=== PATIENT | female | born 1995 | race African-American/Black ===

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

== ENCOUNTER 2017-01-25 10:24 | Emergency (ER) | payer OTHER ==
[~2017-01-25 10:24] MED LIST changes: +NITR100C62 PO; +POLY17PO29 PO; -POLY17PO5 PO
[2017-01-25 10:46] VITALS: BP 102/58
[2017-01-25] MEDS ORDERED: CYCL5TAB PO (11:20)
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
== END 2017-01-25 12:06 | disposition home or self-care (01) ==
LOC: ER 10:29
DX: S16.1XXA Strain of muscle, fascia and tendon at neck level, initial encounter (principal); M54.5 Low back pain; M54.6 Pain in thoracic spine; V49.88XA Car occupant (driver) (passenger) injured in other specified transport accidents, initial encounter; Y93.89 Activity, other specified; Y99.8 Other external cause status; Y92.488 Other paved roadways as the place of occurrence of the external cause
CPT/HCPCS: 70450; 99284-25

== ENCOUNTER 2017-08-03 18:38 | Emergency (ER) | payer SELFPAY, OTHER ==
[2017-08-03 19:28] LABS: URINE HCG POC HCG NEGATIVE (Negative)
[2017-08-03 19:46] LABS: BILIRUBIN,URINE NEGATIVE (NEG); CLARITY,URINE CLEAR; COLOR,URINE YELLOW; GLUCOSE,URINE NEGATIVE (NEG); NITRITE,URINE POSITIVE (NEG); PH,URINE 7.5; PROTEIN,URINE NEGATIVE (NEG-TRACE); UROBILINOGEN,URINE 0.2 mg/dL (0.2 mg/dL)
[2017-08-03] MEDS: IBUPROFEN 600 MG TABLET. PO (19:49)
[2017-08-03 19:52] LABS: BACTERIA,URINE MANY /HPF (0-FEW); RBC,URINE 0 /HPF (0-2); SQUAMOUS EPITHELIAL CELL,UR MOD /LPF
[2017-08-03] MEDS: AZITHROMYCIN 250 MG TABLET. PO (23:37)
[2017-08-03] MEDS: cefTRIAXone IM 250 MG VIAL IM (23:37)
[2017-08-06 20:10] LABS: CHLAMYDIA PROBE Negative (Negative); GC PROBE Positive (Negative)
== END 2017-08-03 23:44 | disposition home or self-care (01) ==
LOC: ER 18:38
DX: N39.0 Urinary tract infection, site not specified (principal); N76.0 Acute vaginitis; B96.89 Other specified bacterial agents as the cause of diseases classified elsewhere
CPT/HCPCS: 76856; 81001; 81025; 87086; 87491; 87591; 96372; 99285-25; J0696; Q0111; Q0144

== ENCOUNTER 2017-12-04 11:53 | Emergency (ER) | payer OTHER ==
[2017-12-04 12:57] LABS: NEGATIVE OBC STREP NEG; POSITIVE OBC STREP POS
[2017-12-04] MEDS: ACETAMINOPHEN/CODEINE 120/12MG 5 ML SOLUTION. PO (13:09)
== END 2017-12-04 13:15 | disposition home or self-care (01) ==
LOC: ER 11:53
DX: B34.9 Viral infection, unspecified (principal); J02.9 Acute pharyngitis, unspecified; F17.200 Nicotine dependence, unspecified, uncomplicated
CPT/HCPCS: 87070; 87880; 99283

== ENCOUNTER 2018-02-01 00:08 | Emergency (ER) | payer OTHER ==
[2018-02-01 00:29] LABS: URINE HCG POC HCG NEGATIVE (Negative)
[2018-02-01 00:33] LABS: BILIRUBIN,URINE NEGATIVE (NEG); CLARITY,URINE CLEAR; COLOR,URINE YELLOW; GLUCOSE,URINE NEGATIVE (NEG); NITRITE,URINE POSITIVE (NEG); PROTEIN,URINE NEGATIVE (NEG-TRACE); UROBILINOGEN,URINE 0.2 mg/dL (0.2 mg/dL)
[2018-02-01 00:49] LABS: BACTERIA,URINE MANY /HPF (0-FEW); SQUAMOUS EPITHELIAL CELL,UR MANY /LPF
[2018-02-01] MEDS: cefTRIAXone IM 250 MG VIAL IM (01:49)
[2018-02-01] MEDS: metroNIDAZOLE 500 MG TABLET PO (01:49)
[2018-02-01] MEDS: AZITHROMYCIN 250 MG TABLET. PO (01:50)
[2018-02-03 14:24] LABS: CHLAMYDIA PROBE Negative (Negative); GC PROBE Positive (Negative)
== END 2018-02-01 01:55 | disposition home or self-care (01) ==
LOC: ER 00:08
DX: N39.0 Urinary tract infection, site not specified (principal); N76.0 Acute vaginitis; B96.89 Other specified bacterial agents as the cause of diseases classified elsewhere; Z20.2 Contact with and (suspected) exposure to infections with a predominantly sexual mode of transmission
CPT/HCPCS: 81001; 81025; 87086; 87491; 87591; 96372; 99284; J0696; Q0111; Q0144

== ENCOUNTER 2018-02-11 23:06 | Emergency (ER) | payer OTHER ==
[2018-02-11 23:39] LABS: URINE HCG POC HCG NEGATIVE (Negative)
[2018-02-11 23:46] LABS: BILIRUBIN,URINE NEGATIVE (NEG); CLARITY,URINE CLEAR; COLOR,URINE YELLOW; GLUCOSE,URINE NEGATIVE (NEG); NITRITE,URINE NEGATIVE (NEG); PH,URINE 6.5; PROTEIN,URINE NEGATIVE (NEG-TRACE); UROBILINOGEN,URINE 0.2 mg/dL (0.2 mg/dL)
[2018-02-11 23:56] LABS: BACTERIA,URINE FEW /HPF (0-FEW); RBC,URINE 20-40 /HPF (0-2); SQUAMOUS EPITHELIAL CELL,UR MOD /LPF; WBC,URINE OCC /HPF (0-4)
== END 2018-02-12 00:42 | disposition home or self-care (01) ==
LOC: ER 23:06
DX: N89.8 Other specified noninflammatory disorders of vagina (principal); R10.2 Pelvic and perineal pain
CPT/HCPCS: 81001; 81025; 99284

== ENCOUNTER 2018-12-24 15:07 | Emergency (ER) | payer OTHER, SELFPAY ==
[~2018-12-24] VITALS: Ht 160 cm; Wt 47.6 kg
[~2018-12-24 15:07] MED LIST changes: +CEPH-264 PO; +CYCL5TAB PO; +HYDR28OI2 TP; +METR500T PO; +SULF1TAB24 PO
[2018-12-24 15:35] VITALS: BP 101/60
[2018-12-24 16:38] LABS: BILIRUBIN,URINE NEGATIVE (NEG); CLARITY,URINE CLEAR; COLOR,URINE YELLOW; NITRITE,URINE NEGATIVE (NEG); PROTEIN,URINE NEGATIVE (NEG-TRACE); UROBILINOGEN,URINE 0.2 mg/dL (0.2 mg/dL)
[2018-12-24 16:49] LABS: BACTERIA,URINE MODERATE /HPF (0-FEW); RBC,URINE 0 /HPF (0-2); SQUAMOUS EPITHELIAL CELL,UR FEW /LPF
--- NOTE | 2018-12-24 16:53 | PHYS DOC ---
Past Medical History Past Medical History: Other Additional Past Medical Histor: ECZEMA,SEASONAL ALLERGIES Past Surgical History: Tonsillectomy Additional Past Surgical Histo: CYST REMOVAL RIGHT WRIST,ADENOIDECTOMY Alcohol Use: None Drug Use: None Adult General Chief Complaint Chief Complaint: ABDOMINAL PAIN HPI HPI 23-year-old female presents to ER for complaints of intermittent nausea and 3 home positive test. Patient reports she's had some mild intermittent l ower abdominal discomfort however denies any pain today. She denies any abnormal vaginal bleeding. Review of Systems Review of Systems Constitutional: Denies fever or chills [] Eyes: Denies change in visual acuity, redness, or eye pain [] HENT: Denies nasal congestion or sore throat [] Respiratory: Denies cough or shortness of breath [] Cardiovascular: No additional information not addressed in HPI [] GI: Denies vomiting, bloody stools or diarrhea. Reports abd pain earlier in wk- denies any today. Reports intermittent nausea : Denies dysuria or hematuria [] Musculoskeletal: Denies back pain or joint pain [] Integument: Denies rash or skin lesions [] Neurologic: Denies headache, focal weakness or sensory changes. Denies dizziness All other systems were reviewed and found to be within normal limits, except as documented in this note. Allergies Allergies Allergies Coded Allergies Type Severity Reaction Last Updated Verified codeine Allergy Severe Facial Swelling 12/24/18 Yes Physical Exam Physical Exam Constitutional: Well developed, well nourished, no acute distress, non-toxic appearance. [] HENT: Normocephalic, atraumatic, oropharynx moist, nose normal. [] Eyes: Pupils equal, conjunctiva normal, no discharge. [] Neck: Normal range of motion, no tenderness, supple, no stridor. [] Cardiovascular:Heart rate regular rhythm, no murmur [] Lungs & Thorax: Bilateral breath sounds clear to auscultation- resp. equal/nonlabored Abdomen: Bowel sounds normal, soft- no distention/rigidity, no tenderness, no masses, no pulsatile masses. [] Skin: Warm, dry, no erythema, no rash. [] Back: No tenderness, no CVA tenderness. [] Extremities: No tenderness, no cyanosis, no clubbing, ROM intact, no edema. [] Neurologic: Alert and oriented X 3, normal motor function, normal sensory function, no focal deficits noted. [] Psychologic: Affect normal, judgement normal, mood normal. [] Current Patient Data Vital Signs Vital Signs Date Time Temp Pulse Resp B/P (MAP) Pulse Ox O2 Delivery O2 Flow Rate FiO2 12/24/18 15:35 98.6 55 18 101/60 (74) 100 Room Air 98.6 Lab Values Laboratory Tests Test 12/24/18 15:40 12/24/18 16:20 12/24/18 16:55 POC Urine HCG, Qualitative Hcg positive (Negative) Urine Collection Type Unknown Urine Color Yellow Urine Clarity Clear Urine pH 7.0 Urine Specific [place] 1.015 Urine Protein Negative mg/dL (NEG-TRACE) Urine Glucose (UA) Negative mg/dL (NEG) Urine Ketones (Stick) Negative mg/dL (NEG) Urine Blood Negative (NEG) Urine Nitrite Negative (NEG) Urine Bilirubin Negative (NEG) Urine Urobilinogen Dipstick 0.2 mg/dL (0.2 mg/dL) Urine Leukocyte Esterase Negative (NEG) Urine RBC 0 /HPF (0-2) Urine WBC 1-4 /HPF (0-4) Urine Squamous Epithelial Cells Few /LPF Urine Bacteria Moderate /HPF (0-FEW) White Blood Count 6.9 x10^3/uL (4.0-11.0) Red Blood Count 4.36 x10^6/uL (3.50-5.40) Hemoglobin 13.7 g/dL (12.0-15.5) Hematocrit 40.6 % (36.0-47.0) Mean Corpuscular Volume 93 fL (79-100) Mean Corpuscular Hemoglobin 31 pg (25-35) Mean Corpuscular Hemoglobin Concent 34 g/dL (31-37) Red Cell Distribution Width 12.7 % (11.5-14.5) Platelet Count 299 x10^3/uL (140-400) Neutrophils (%) (Auto) 43 % (31-73) Lymphocytes (%) (Auto) 46 % (24-48) Monocytes (%) (Auto) 8 % (0-9) Eosinophils (%) (Auto) 3 % (0-3) Basophils (%) (Auto) 1 % (0-3) Neutrophils # (Auto) 2.9 x10^3uL (1.8-7.7) Lymphocytes # (Auto) 3.1 x10^3/uL (1.0-4.8) Monocytes # (Auto) 0.5 x10^3/uL (0.0-1.1) Eosinophils # (Auto) 0.2 x10^3/uL (0.0-0.7) Basophils # (Auto) 0.1 x10^3/uL (0.0-0.2) Maternal Serum HCG Beta Subunit 2274 mIU/mL (0-5) H Sodium Level 138 mmol/L (136-145) Potassium Level 3.8 mmol/L (3.5-5.1) Chloride Level 104 mmol/L (98-107) Carbon Dioxide Level 23 mmol/L (21-32) Anion Gap 11 (6-14) Blood Urea Nitrogen 9 mg/dL (7-20) Creatinine 0.7 mg/dL (0.6-1.0) Estimated GFR (Cockcroft-Gault) 127.8 BUN/Creatinine Ratio 13 (6-20) Glucose Level 79 mg/dL (70-99) Calcium Level 9.4 mg/dL (8.5-10.1) Total Bilirubin 0.4 mg/dL (0.2-1.0) Aspartate Amino Transferase (AST) 18 U/L (15-37) Alanine Aminotransferase (ALT) 17 U/L (14-59) Alkaline Phosphatase 39 U/L (46-116) L Total Protein 7.9 g/dL (6.4-8.2) Albumin 4.1 g/dL (3.4-5.0) Albumin/Globulin Ratio 1.1 (1.0-1.7) Laboratory Tests 12/24/18 16:55 Laboratory Tests 12/24/18 16:55 Microbiology 12/24/18 Wet Prep - Final, Complete EKG EKG [] Radiology/Procedures Radiology/Procedures Pelvic 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 (See chart for details) Pt had labs/pelvic exam while in the ER- she had positive UCG and so serum blood test was around and her beta hCG Quant was 2274. UA negative for infection showed moderate bacteria and negative leukocytes/blood/nitrates She denied any abdominal pain or back pain while in the ER. Wet mount results suggestive BV- this was discussed with pt and plans for Flagyl w/discharge paperwork. Patient was advised on need to establish OB doctor for further care during . Pt advised on pending GC and chlamydia tests and need to follow-up on those results in 2-3 days. Education provided on signs and symptoms to return to ER. Discharge instructions were discussed. Patient to follow-up with primary care physician if symptoms persist or with any concerns. Dragon Disclaimer Dragon Disclaimer This electronic medical record was generated, in whole or in part, using a voice recognition dictation system. 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 Drink plenty of fluids daily. Tylenol as needed for pain as directed on container. Scripts Metronidazole (FLAGYL) 500 Mg Tablet 1 TAB PO BID, #14 TAB 0 Refills Prov: PARAMJIT HUANG APRN 12/24/18 Problem Qualifiers PARAMJIT HUANG APRN December 24, 2018 16:53
[2018-12-24 17:05] LABS: BASO # 0.1 x10^3/uL (0.0-0.2); BASO % 1 % (0-3); EOS # 0.2 x10^3/uL (0.0-0.7); EOS % 3 % (0-3); HEMATOCRIT 40.6 % (36.0-47.0); HEMOGLOBIN 13.7 g/dL (12.0-15.5); LYMPH # 3.1 x10^3/uL (1.0-4.8); LYMPH % 46 % (24-48); MEAN CORPUSCULAR HEMOGLOBIN 31 pg (25-35); MEAN CORPUSCULAR HGB CONC 34 g/dL (31-37); MEAN CORPUSCULAR VOLUME 93 fL (79-100); MONO # 0.5 x10^3/uL (0.0-1.1); MONO % 8 % (0-9); NEUT # 2.9 x10^3uL (1.8-7.7); NEUT % 43 % (31-73); PLATELET COUNT 299 x10^3/uL (140-400); RED BLOOD COUNT 4.36 x10^6/uL (3.50-5.40); RED CELL DISTRIBUTION WIDTH 12.7 % (11.5-14.5); WHITE BLOOD COUNT 6.9 x10^3/uL (4.0-11.0)
[2018-12-24 17:07] LABS: CALCIUM 9.4 mg/dL (8.5-10.1); CREATININE 0.7 mg/dL (0.6-1.0); GFR 127.8; POTASSIUM 3.8 mmol/L (3.5-5.1)
[2018-12-24 17:13] LABS: ALBUMIN 4.1 g/dL (3.4-5.0); ALBUMIN/GLOBULIN RATIO 1.1 (1.0-1.7); TOTAL BILIRUBIN 0.4 mg/dL (0.2-1.0); TOTAL PROTEIN 7.9 g/dL (6.4-8.2)
[2018-12-24] MEDS ORDERED: METR500T PO (18:22)
[2018-12-27 14:10] LABS: GC PROBE Negative (Negative)
== END 2018-12-24 18:36 | disposition home or self-care (01) ==
LOC: ER 15:07
DX: O23.591 Infection of other part of genital tract in pregnancy, first trimester (principal); R11.0 Nausea; B96.89 Other specified bacterial agents as the cause of diseases classified elsewhere; R10.30 Lower abdominal pain, unspecified; Z90.89 Acquired absence of other organs; Z88.5 Allergy status to narcotic agent; Z3A.01 Less than 8 weeks gestation of pregnancy
CPT/HCPCS: 36415; 80053; 81001; 81025; 84702; 85025; 87086; 87491; 87591; 99284; Q0111; 99283

== ENCOUNTER 2019-04-07 14:02 | Emergency (ER) | payer MEDICAID, OTHER ==
[~2019-04-07] VITALS: Ht 160 cm; Wt 51.7 kg
[2019-04-07 14:29] VITALS: BP 138/75
--- NOTE | 2019-04-07 14:50 | PHYS DOC ---
Past Medical History Past Medical History: Other Additional Past Medical Histor: ECZEMA,SEASONAL ALLERGIES Past Surgical History: Tonsillectomy Additional Past Surgical Histo: CYST REMOVAL RIGHT WRIST,ADENOIDECTOMY Alcohol Use: None Drug Use: None Adult General Chief Complaint Chief Complaint: MEDICATION REFILL HPI HPI Patient is a 23 year old female with no significant medical history 1 para 0 currently 14 weeks presenting to the ED today requesting allergy eyedrops. Patient states she's had bilateral eye itching and irritation for couple days. Review of Systems Review of Systems Constitutional: Denies fever or chills [] Eyes: Bilateral eye itching and irritation. Denies change in visual acuit GI: Reports being . Denies abdominal pain, nausea, vomiting, bloody stools or diarrhea [] : Denies dysuria or hematuria [] Musculoskeletal: Denies back pain or joint pain [] Integument: Denies rash or skin lesions [] Neurologic: Denies headache, focal weakness or sensory changes [] All other systems were reviewed and found to be within normal limits, except as documented in this note. Allergies Allergies Allergies Coded Allergies Type Severity Reaction Last Updated Verified codeine Allergy Severe Facial Swelling 12/24/18 Yes Physical Exam Physical Exam Constitutional: Well developed, well nourished, no acute distress, non-toxic appearance. [] Eyes: PERRLA, EOMI, bilateral conjunctiva is slightly injected, clear tears noted. Abdomen: Gravid abdomen. Bowel sounds normal, soft, no tenderness, no masses, no pulsatile masses. [] Skin: Warm, dry, no erythema, no rash. [] Back: No tenderness, no CVA tenderness. [] Extremities: No tenderness, no cyanosis, no clubbing, ROM intact, no edema. [] Neurologic: Alert and oriented X 3, normal motor function, normal sensory function, no focal deficits noted. [] Psychologic: Affect normal, judgement normal, mood normal. [] Current Patient Data Vital Signs Vital Signs Date Time Temp Pulse Resp B/P (MAP) Pulse Ox O2 Delivery O2 Flow Rate FiO2 04/07/19 14:29 97.9 89 18 138/75 (96) 99 Room Air 97.9 EKG EKG [] Radiology/Procedures Radiology/Procedures [] Course & Med Decision Making Course & Med Decision Making Pertinent Labs and Imaging studies reviewed. (See chart for details) This is a 23-year-old female patient presenting to the ED today with allergic conjunctivitis. Discharged with Zaditor after consulting with the pharmacist. Follow-up with an allergy clinic if symptoms worsen. Dragon Disclaimer Dragon Disclaimer This electronic medical record was generated, in whole or in part, using a voice recognition dictation system. Departure Departure Impression: Primary Impression: Allergic conjunctivitis Disposition: HOME, SELF-CARE Condition: STABLE Referrals: UNKNOWN PCP NAME (PCP) Follow-up with your own doctor in 1-2 weeks Patient Instructions: Allergic Conjunctivitis, [id number] Additional Instructions: You were seen for allergies, we put you on eyedrops use them as prescribed. Follow-up with your own doctor or the allergy clinic as needed Scripts Ketotifen Fumarate (ZADITOR) 5 Ml Drops 1 DROP EACHEYE BID, #5 ML 1 Refill Prov: JOYCE RAMON APRN 04/07/19 Problem Qualifiers Primary Impression: Allergic conjunctivitis Laterality: bilateral Qualified Codes: H10.13 - Acute atopic conjunctivitis, bilateral JOYCE RAMON MOBILITY SCOOTER REPAIRER Apr 07, 2019 14:50
[2019-04-07] MEDS ORDERED: KETO5DRO4 EACHEYE (15:08)
== END 2019-04-07 15:40 | disposition home or self-care (01) ==
LOC: ER 14:02
DX: O26.892 Other specified pregnancy related conditions, second trimester (principal); H10.13 Acute atopic conjunctivitis, bilateral; Z3A.14 14 weeks gestation of pregnancy; Z88.5 Allergy status to narcotic agent
CPT/HCPCS: 99282

== ENCOUNTER 2020-06-30 16:19 | Emergency (ER) | payer MEDICAID ==
[~2020-06-30] VITALS: Ht 162.6 cm; Wt 61.8 kg
[~2020-06-30 16:19] MED LIST changes: +KETO5DRO4 EACHEYE
[2020-06-30 16:35] VITALS: BP 103/56
[2020-06-30] MEDS ORDERED: IBUPROFEN 200 MG TABLET. PO ONE (17:15)
--- NOTE | 2020-06-30 17:32 | RAD ---
Clinical indications: Injury last night. Right ankle and right foot pain. Three-view right ankle study: No acute fracture or dislocation or lytic process is seen. The mortise ankle joint is intact. Three-view right foot study: No acute fracture or dislocation or lytic process is seen. IMPRESSION: No acute fracture. Electronically signed by: Nicholas Lamb MD (06/30/2020 5:29 PM) [id number]
--- NOTE | 2020-06-30 17:49 | ED.ADGEN ---
Past Medical History Past Medical History: Other Additional Past Medical Histor: ECZEMA,SEASONAL ALLERGIES Past Surgical History: Tonsillectomy Additional Past Surgical Histo: CYST REMOVAL RIGHT WRIST,ADENOIDECTOMY Smoking Status: Former Smoker Alcohol Use: Occasionally Drug Use: None General Adult EDM: Chief Complaint: ANKLE PROBLEM HPI: HPI: Patient is a 24 year old AA female who presents to the emergency department with complaints of right ankle and right foot pain after twisting her right ankle while dancing last night and following. Patient states the pain is so severe today she has been unable to bear weight on her right lower extremity. She denies any numbness or tingling of the affected extremity. Patient currently rates the pain a 10 out of 10 on the pain scale, she denies taking any pain medication prior to arrival. Review of Systems: Review of Systems: Complete ROS is negative unless otherwise noted in HPI. Current Medications: Current Medications Medications (Trade) Dose Ordered Sig/Koby Start Time Stop Time Status Last Admin Dose Admin Ibuprofen (Motrin) 600 mg 1X ONCE 06/30/20 17:15 06/30/20 17:16 DC 06/30/20 17:38 600 MG Allergies: Allergies: Allergies Coded Allergies Type Severity Reaction Last Updated Verified codeine Allergy Severe Facial Swelling 12/24/18 Yes Physical Exam: PE: See Above Constitutional: Well developed, well nourished, no acute distress, non-toxic appearance. [] HENT: Normocephalic, atraumatic, bilateral external ears normal, nose normal. [] Eyes: PERRLA, EOMI, conjunctiva normal, no discharge. [] Neck: Normal range of motion, no stridor. [] Cardiovascular:Heart rate regular rhythm Lungs & Thorax: Respirations even and unlabored, no retractions, no respiratory distress Abdomen: soft, no tenderness Skin: Warm, dry, no erythema, no rash. [] Extremities: RLE: Lateral ankle tenderness to palpation without crepitus or obvious deformity, midfoot tenderness to palpation without crepitus or obvious deformity, no cyanosis, no edema, unable to test range of motion due to patient noncompliance. 2+ pedal pulse Neurologic: Alert and oriented X 3, no focal deficits noted. [] Psychologic: Affect normal, judgement normal, mood normal. [] Current Patient Data: Vital Signs: Vital Signs Date Time Temp Pulse Resp B/P (MAP) Pulse Ox O2 Delivery O2 Flow Rate FiO2 06/30/20 16:35 98.2 96 22 103/56 (72) 96 Room Air 98.2 EKG: EKG: [] Heart Score: Risk Factors: Risk Factors: DM, Current or recent (<one month) smoker, HTN, HLP, family history of CAD, obesity. Risk Scores: Score 0 - 3: 2.5% MACE over next 6 weeks - Discharge Home Score 4 - 6: 20.3% MACE over next 6 weeks - Admit for Clinical Observation Score 7 - 10: 72.7% MACE over next 6 weeks - Early Invasive Strategies Radiology/Procedures: Radiology/Procedures: REASON: R ankle and R foot pain after injury last night PROCEDURE: FOOT RIGHT 3V Clinical indications: Injury last night. Right ankle and right foot pain. Three-view right ankle study: No acute fracture or dislocation or lytic process is seen. The mortise ankle joint is intact. Three-view right foot study: No acute fracture or dislocation or lytic process is seen. IMPRESSION: No acute fracture. [] Course & Med Decision Making: Course & Med Decision Making Pertinent Labs and Imaging studies reviewed. (See chart for details) [] Dragon Disclaimer: Dragon Disclaimer: This electronic medical record was generated, in whole or in part, using a voice recognition dictation system. Departure Departure Impression: Primary Impression: Right foot pain Additional Impression: Right ankle pain Disposition: 01 DC HOME SELF CARE/HOMELESS Condition: STABLE Referrals: UNKNOWN PCP NAME (PCP) RAYA ESPINOZA MD Patient Instructions: Ankle Pain Additional Instructions: Tylenol or ibuprofen as needed for pain. Recommend application of ice, elevation, and rest of affected extremity. Wear the splint that was placed until follow up appointment. Follow-up with Dr. Espinoza if symptoms persist. Return to the ER if your symptoms worsen. Splinting Splinting : Location: RLE Pre-Made Type: velcro (velcro ankle splint, curt wrap) Pre-Proc Neuro Vasc Exam: normal Post-Proc Neuro Vasc Exam: normal, unchanged from pre-exam Problem Qualifiers Additional Impression: Right ankle pain Chronicity: acute Qualified Codes: M25.571 - Pain in right ankle and joints of right foot ALEXANDR CROOK LIGHT TRUCK DRIVER Jun 30, 2020 17:49
== END 2020-06-30 17:58 | disposition home or self-care (01) ==
LOC: ER 16:19
DX: M25.571 Pain in right ankle and joints of right foot (principal); Z87.891 Personal history of nicotine dependence; Z88.5 Allergy status to narcotic agent
CPT/HCPCS: 73610; 73630; 99284; L4350